=== PATIENT | male | born 1955 | race Caucasian/White ===

== ENCOUNTER 2020-02-18 07:41 | Day surgery (SDC) | payer OTHER ==
[2020-02-16 16:37] LABS: BASOPHILS % (AUTO) 1 % (0-1); EOSINOPHILS % (AUTO) 8 % (1-7); LYMPHOCYTES % (AUTO) 32 % (22-44); MEAN CORPUSCULAR HEMOGLOBIN 30.6 pg (27.5-34.5); MEAN CORPUSCULAR HGB CONC 34.4 g/dL (33.2-36.2); MEAN PLATELET VOLUME 7.5 fL (7.4-10.4); MONOCYTES % (AUTO) 9 % (2-9); NEUTROPHILS % (AUTO) 51 % (42-75); PLATELET COUNT 291 x10^3/uL (130-400); RED BLOOD COUNT 4.62 x10^6/uL (4.38-5.82)
[2020-02-16 16:39] LABS: ALBUMIN 4.1 g/dL (3.4-5.0); ANION GAP 4 mmol/L (5-15); CALCIUM 9.4 mg/dL (8.5-10.1); CHLORIDE 105 mmol/L (98-107)
[2020-02-16 16:40] LABS: INTERNATIONAL NORMALIZED RATIO 0.96 (0.93-1.1); PROTHROMBIN TIME 10.2 Seconds (9.6-11.5)
[2020-02-16 16:42] LABS: ALANINE AMINOTRANSFERASE 28 U/L (12-78); ALKALINE PHOSPHATASE 63 U/L (45-117); BILIRUBIN,TOTAL 0.5 mg/dL (0.2-1.0); CREATININE 0.95 mg/dL (0.7-1.3); TOTAL PROTEIN 7.9 g/dL (6.4-8.2)
[2020-02-16 16:43] LABS: MD NO
[~2020-02-18] VITALS: Ht 185.4 cm; Wt 122.0 kg
[~2020-02-18 07:41] MED LIST: BACITRACIN 50,000 UNIT ONE; BUPIVACAINE 0.25% ONE; EPINEPHRINE 1 MG/ML, 1ML ONE; GABA300C PO; LOSA25TA25 PO; OXYC10TA6 PO; PANT40TA6 PO; Sucralfate PO; THROMBIN 20,000 UNIT VIAL TP ONE
[2020-02-18] MEDS ORDERED: FENTANYL PF 250 MCG/5ML ONE (08:17)
[2020-02-18] MEDS ORDERED: MIDAZOLAM 1 MG/ML, 2ML ONE (08:17)
[2020-02-18 08:43] VITALS: BP 149/94
[2020-02-18] MEDS ORDERED: LACTATED RINGERS 1,000 ML IV SCH (09:00)
[2020-02-18] MEDS ORDERED: CHLORHEXIDINE 15 ML UDC MM ONE (09:00)
[2020-02-18] MEDS ORDERED: PROPOFOL 10 MG/ML, 20ML ONE (09:40)
[2020-02-18] MEDS ORDERED: ONDANSETRON 2MG/ML, 2ML ONE (09:40)
[2020-02-18] MEDS ORDERED: SUCCINYLCHOLINE 20 MG/ML, 10ML ONE (09:40)
[2020-02-18] MEDS ORDERED: ROCURONIUM 10 MG/ML,10ML ONE (09:40)
[2020-02-18] MEDS ORDERED: DEXAMETHASONE 4 MG/ML, 1ML ONE (09:40)
[2020-02-18] MEDS ORDERED: CEFAZOLIN 1,000 MG ONE (09:40)
[2020-02-18] MEDS ORDERED: BUPIVACAINE/PF 0.25% INFIL ONE (10:27)
[2020-02-18] MEDS ORDERED: OXYcodone 5 MG/5 ML ORAL.SOL UDC PO PRN (11:00)
[2020-02-18] MEDS ORDERED: hydrALAzine 20 MG/ML, 1ML IV PRN (11:00)
[2020-02-18] MEDS ORDERED: MEPERIDINE/PF 25MG/0.5ML IVPush PRN (11:00)
[2020-02-18] MEDS ORDERED: ONDANSETRON 2MG/ML, 2ML IVPush PRN (11:00)
[2020-02-18] MEDS ORDERED: DIAZEPAM 5 MG/ML, 2ML IV PRN ×2 (11:00)
[2020-02-18] MEDS ORDERED: LABETALOL 5MG/ML, 20ML IV PRN (11:00)
[2020-02-18] MEDS ORDERED: PROMETHAZINE 25 MG/ML, 1ML IV PRN (11:00)
[2020-02-18] MEDS ORDERED: KETOROLAC 30 MG/1 ML IV PRN (11:00)
[2020-02-18] MEDS ORDERED: ALBUTEROL SULFATE 2.5 MG/3 ML NPPB PRN (11:00)
[2020-02-18] MEDS ORDERED: METOCLOPRAMIDE 5 MG/ML, 2ML IV PRN (11:00)
[2020-02-18] MEDS: FENTANYL PF 100 MCG/2ML IV PRN ×2 (11:20→11:30)
[2020-02-18] MEDS ORDERED: FENTANYL PF 100 MCG/2ML ONE (11:22)
[2020-02-18] MEDS ORDERED: MEPERIDINE/PF 25MG/ML,1ML ONE (11:22)
[2020-02-18] MEDS ORDERED: HYDROmorphone 1 MG/ML, 1ML INJ ONE (11:22)
[2020-02-18] MEDS ORDERED: OXYcodone 5 MG/5 ML ORAL.SOL UDC ONE (11:22)
[2020-02-18] MEDS ORDERED: METHOCARBAMOL 1,000 MG in DEXTROSE 5% 100 ML IV ONE (11:30)
[2020-02-18] MEDS: HYDROmorphone 1 MG/ML, 1ML INJ IV PRN ×2 (11:42→11:53)
[2020-02-18] MEDS ORDERED: KETOROLAC 30 MG/1 ML IM SCH (12:30)
== END 2020-02-18 13:25 | disposition home or self-care (01) ==
LOC: OUT 07:41
PROVIDERS: ATTEND Neurological Surgery
DX: M51.16 Intervertebral disc disorders with radiculopathy, lumbar region (principal); M48.061 Spinal stenosis, lumbar region without neurogenic claudication; M43.16 Spondylolisthesis, lumbar region; M71.38 Other bursal cyst, other site; M21.371 Foot drop, right foot; Z20.828 Contact with and (suspected) exposure to other viral communicable diseases; Z79.01 Long term (current) use of anticoagulants; Z79.891 Long term (current) use of opiate analgesic; Z79.899 Other long term (current) drug therapy; Z82.49 Family history of ischemic heart disease and other diseases of the circulatory system
CPT/HCPCS: 36415; 63267; 71046; 72100; 72110; 80053; 85025; 85610; 85730; 93005; 95938; 95941; J0171; J0330; J0690; J1100; J1170; J1885; J2175; J2250; J2405; J2704; J2800; J3010; J7120; U0003